=== PATIENT | female | born 2005 | race Caucasian/White ===

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

== ENCOUNTER 2024-11-27 16:00 | Emergency (ER) | payer BC, SELFPAY ==
[2024-11-27 16:12] VITALS: BP 124/82; PULSE 98; RESP 16; TEMP 36.9; O2SAT 100; BMI 24.0
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
== END 2024-11-27 17:48 | disposition home or self-care (01) ==
LOC: ED 16:55
PROVIDERS: Emergency Provider Emergency Medicine; PCP Family Medicine
DX: L73.8 Other specified follicular disorders (principal)
CPT/HCPCS: 99283